=== PATIENT | male | born 1975 | race Caucasian/White ===

== ENCOUNTER 2018-04-11 13:28 | Inpatient (IN) | payer OTHER ==
[~2018-04-11] VITALS: Ht 175.3 cm; Wt 90.3 kg
[2018-04-11] MEDS ORDERED: TYLENOL PO (13:35)
[2018-04-11] MEDS ORDERED: CIPROFLOXACIN IV 400 MG in PREMIXED 1 EACH IV SCH (13:58)
[2018-04-11] MEDS ORDERED: METRONIDAZOLE 500 MG/NS 100ML 500 MG in PREMIXED 1 EACH IV SCH (14:00)
[2018-04-11] MEDS ORDERED: IV NS 1000 ML 1,000 ML IV ONE ×2 (14:00→15:45)
[2018-04-11] MEDS ORDERED: ONDANSETRON 4 MG/2 ML VIAL ONE (14:10)
[2018-04-11] MEDS ORDERED: PANTOPRAZOLE SODIUM 40 MG VIAL ONE (14:10)
[2018-04-11] MEDS ORDERED: MORPHINE SULFATE 4 MG/1 ML DISP.SYRIN ONE (14:10)
[2018-04-11] MEDS ORDERED: METRONIDAZOLE 500 MG/NS 100ML 100 ML IV ONE (14:11)
[2018-04-11] MEDS ORDERED: MORPHINE SULFATE 4 MG/1 ML DISP.SYRIN IV ONE (14:15)
[2018-04-11] MEDS ORDERED: PANTOPRAZOLE SODIUM IV 40 MG in IV DEXTROSE 5% 100 ML IV ONE (14:15)
[2018-04-11] MEDS ORDERED: ONDANSETRON IV *ER 4 MG/2 ML VIAL IV ONE (14:15)
[2018-04-11 14:18] LABS: BASOPHILS % (AUTO) 0.3 % (0.0-2.0); EOSINOPHILS % (AUTO) 0.2 % (0.0-7.0); HEMATOCRIT 43.3 % (36.7-47.1); HEMOGLOBIN 15.1 g/dL (12.5-16.3); LYMPHOCYTES % (AUTO) 8.8 % (20.5-51.5); MEAN CORPUSCULAR HEMOGLOBIN 30.3 uug (23.8-33.4); MEAN CORPUSCULAR HGB CONC 35 g/dL (32.5-36.3); MONOCYTES % (AUTO) 4.7 % (0.0-11.0); NEUTROPHILS # (AUTO) 12.3 K/uL (1.8-8.9); PLATELET COUNT (AUTO) 186 K/uL (152-348); RED BLOOD CELL COUNT(AUTO) 4.98 MIL/uL (4.06-5.63); WHITE BLOOD COUNT (AUTO) 14.3 K/uL (3.6-10.2)
[2018-04-11 14:19] LABS: LYMPHOCYTES # (AUTO) 1.3 K/uL (20.0-40.0); MONOCYTES # (AUTO) 0.7 K/uL (2.0-10.0)
[2018-04-11] MEDS ORDERED: IV NORMAL SALINE 100 ML ONE (14:23)
[2018-04-11] MEDS ORDERED: SWABABLE VALVE TRANSFER SET EA MC ONE (14:23)
[2018-04-11] MEDS ORDERED: IOHEXOL 300MG/ML 100 ML INFUS..BTL ONE (14:23)
[2018-04-11 14:35] LABS: BILIRUBIN,TOTAL 1.4 mg/dL (0.2-1.0)
[2018-04-11] MEDS ORDERED: methylPREDNISolone SOD SUCC 40 MG/ML VIAL IV ONE (14:45)
[2018-04-11] MEDS ORDERED: diphenhydrAMINE 50 MG/1 ML VIAL IV ONE (14:45)
[2018-04-11] MEDS ORDERED: diphenhydrAMINE 50 MG/1 ML VIAL ONE (14:50)
[2018-04-11] MEDS ORDERED: methylPREDNISolone SOD SUCC 40 MG/ML VIAL ONE (14:50)
[2018-04-11 16:02] LABS: *BILIRUBIN,URIN NEGATIVE (NEGATIVE); *BLOOD, URINE NEGATIVE (NEGATIVE); *CLARITY,URINE CLEAR (CLEAR); *COLOR,URINE LIGHT YELLOW (YELLOW); *KETONES,URINE NEGATIVE (NEGATIVE); *PROTEIN,URINE NEGATIVE (NEGATIVE); *UROBILINOGEN,URINE 0.2 E.U./dl (NORMAL); LEUKOCYTE ESTERASE ,URINE NEGATIVE (NEGATIVE); NITRITE, URINE NEGATIVE (NEGATIVE); PH,URINE 6.5 (5.0-8.0); UGLUCOSE NEGATIVE (NEGATIVE)
[2018-04-11 16:09] LABS: WBC,URINE NONE SEEN /HPF (0-3)
[2018-04-11] MEDS ORDERED: Z GUARD REMEDY PASTE 57 GM TUBE TOP PRN (16:30)
[2018-04-11] MEDS ORDERED: MAGNESIUM HYDROXIDE 30 ML LIQUID UDC PO PRN (16:30)
[2018-04-11] MEDS ORDERED: ACETAMINOPHEN 325 MG TABLET PO PRN (16:30)
[2018-04-11] MEDS ORDERED: IV NS 1000 ML 1,000 ML IV PRN (16:30)
[2018-04-11] MEDS ORDERED: HYDROCODONE/APAP 5-325MG TABLET PO PRN (16:30)
[2018-04-11] MEDS ORDERED: ONDANSETRON 4 MG/2 ML VIAL IV PRN (16:30)
[2018-04-11] MEDS ORDERED: MORPHINE SULFATE 2 MG/1 ML DISP.SYRIN IV PRN (16:30)
[2018-04-11] MEDS ORDERED: MORPHINE SULFATE 4 MG/1 ML DISP.SYRIN IV PRN (17:15)
[2018-04-11 17:23] LABS: *AMPHETAMINE, URINE NEGATIVE (NEGATIVE); *BARBITURATE, URINE NEGATIVE (NEGATIVE); *CANNABINOID, URINE NEGATIVE (NEGATIVE); *COCCAINE, URINE NEGATIVE (NEGATIVE); *OPIATE, URINE POSITIVE (NEGATIVE); *PHENCYCLIDINE SCREEN,URINE NEGATIVE (NEGATIVE)
[2018-04-11 17:56] VITALS: BP 107/58
[2018-04-11] MEDS: PIPERACILLIN/TAZOBACTAM/D5W 50 ML IV SCH (19:55)
[2018-04-11 20:00] VITALS: BP 104/57
[2018-04-12] MEDS: PIPERACILLIN/TAZOBACTAM/D5W 50 ML IV SCH ×3 (00:03→11:14)
[2018-04-12] MEDS ORDERED: ZOLPIDEM 5 MG TABLET PO PRN (00:45)
[2018-04-12 04:31] VITALS: BP 115/57
[2018-04-12 06:57] LABS: BILIRUBIN,DIRECT 0.2 mg/dL (0.0-0.2); BILIRUBIN,TOTAL 1.4 mg/dL (0.2-1.0); MAGNESIUM 1.9 mg/dL (1.8-2.4); PHOSPHOROUS 4.7 mg/dL (2.5-4.9); POTASSIUM 3.5 mmol/L (3.5-5.1)
[2018-04-12 06:58] LABS: BASOPHILS % (AUTO) 0.1 % (0.0-2.0); HEMATOCRIT 42.8 % (36.7-47.1); HEMOGLOBIN 15.1 g/dL (12.5-16.3); LYMPHOCYTES # (AUTO) 0.9 K/uL (20.0-40.0); LYMPHOCYTES % (AUTO) 8.4 % (20.5-51.5); MEAN CORPUSCULAR HEMOGLOBIN 30.5 uug (23.8-33.4); MEAN CORPUSCULAR HGB CONC 35 g/dL (32.5-36.3); MEAN CORPUSCULAR VOLUME 86.7 fL (73.0-96.2); MONOCYTES # (AUTO) 0.5 K/uL (2.0-10.0); MONOCYTES % (AUTO) 5.1 % (0.0-11.0); NEUTROPHILS # (AUTO) 9.2 K/uL (1.8-8.9); NEUTROPHILS % (AUTO) 86.4 % (38.5-71.5); PLATELET COUNT (AUTO) 211 K/uL (152-348); RED BLOOD CELL COUNT(AUTO) 4.93 MIL/uL (4.06-5.63); WHITE BLOOD COUNT (AUTO) 10.6 K/uL (3.6-10.2)
[2018-04-12 07:05] LABS: THYROID STIMULATING HORMONE 0.421 mIU/mL (0.358-3.740)
[2018-04-12] MEDS ORDERED: PANTOPRAZOLE SODIUM 40 MG VIAL IV SCH ×2 (09:00→11:39)
[2018-04-12 11:56] VITALS: BP 112/64
[2018-04-12 15:35] VITALS: BP 126/89
== END 2018-04-12 15:35 | disposition home or self-care (01) | DRG 871 ==
LOC: ER 13:28 → MED 17:02
PROVIDERS: ADMIT Nurse Practitioner Acute Care; ATTEND Nurse Practitioner Acute Care
DX: A41.9 Sepsis, unspecified organism (principal); K65.9 Peritonitis, unspecified; B37.0 Candidal stomatitis; J98.11 Atelectasis; M04.1 Periodic fever syndromes; K42.9 Umbilical hernia without obstruction or gangrene; E80.6 Other disorders of bilirubin metabolism; Z72.0 Tobacco use; Z90.49 Acquired absence of other specified parts of digestive tract; K80.20 Calculus of gallbladder without cholecystitis without obstruction; K76.0 Fatty (change of) liver, not elsewhere classified; K57.30 Diverticulosis of large intestine without perforation or abscess without bleeding
CPT/HCPCS: 36415; 70030-TC; 71045; 76700; 80307; 83605; 83690; 83735; 84100; 84443; 85025; 85610; 85651; 87040; 93005; A4663; C9113; J0744; J1200; J2270; J2405; J2543; J2920; J3490; J7030; Q9967

== ENCOUNTER 2019-02-09 10:15 | Emergency (ER) | payer OTHER ==
[~2019-02-09] VITALS: Ht 175.3 cm; Wt 90.7 kg
[~2019-02-09 10:15] MED LIST: TYLENOL PO
[2019-02-09] MEDS ORDERED: KETOROLAC TROMETHAMINE 30 MG INJ IVP ONE (10:30)
--- NOTE | 2019-02-09 10:40 | NUR ---
Received patient to ER 2 bed 1 with complaint of right lower abd pain. Seen by ER MD, and orders written. Zach Valladares RN
[2019-02-09 10:47] LABS: BASOPHILS # (AUTO) 0.1 K/uL (0.0-8.0); BASOPHILS % (AUTO) 0.7 % (0.0-2.0); EOSINOPHILS # (AUTO) 0.1 K/uL (0.0-0.7); EOSINOPHILS % (AUTO) 0.9 % (0.0-7.0); HEMATOCRIT 43.9 % (36.7-47.1); HEMOGLOBIN 15.2 g/dL (12.5-16.3); LYMPHOCYTES # (AUTO) 2.2 K/uL (20.0-40.0); LYMPHOCYTES % (AUTO) 18.4 % (20.5-51.5); MEAN CORPUSCULAR HEMOGLOBIN 30.3 uug (23.8-33.4); MEAN CORPUSCULAR HGB CONC 35 g/dL (32.5-36.3); MEAN CORPUSCULAR VOLUME 87.6 fL (73.0-96.2); MONOCYTES # (AUTO) 1.1 K/uL (2.0-10.0); MONOCYTES % (AUTO) 9.3 % (0.0-11.0); NEUTROPHILS # (AUTO) 8.6 K/uL (1.8-8.9); NEUTROPHILS % (AUTO) 70.7 % (38.5-71.5); PLATELET COUNT (AUTO) 219 K/uL (152-348); RED BLOOD CELL COUNT(AUTO) 5.01 MIL/uL (4.06-5.63); WHITE BLOOD COUNT (AUTO) 12.1 K/uL (3.6-10.2)
[2019-02-09] MEDS ORDERED: KETOROLAC TROMETHAMINE 30 MG INJ ONE (10:51)
[2019-02-09 10:55] LABS: POTASSIUM 3.8 mmol/L (3.5-5.1)
--- NOTE | 2019-02-09 10:57 | NUR ---
Patient went to CT abd via gurney with resident in diagnostic radiology. Zach Valladares RN
[2019-02-09 11:01] LABS: BILIRUBIN,DIRECT 0.3 mg/dL (0.0-0.2); BILIRUBIN,TOTAL 1.6 mg/dL (0.2-1.0)
[2019-02-09 11:01] LABS: *BILIRUBIN,URIN NEGATIVE (NEGATIVE); *BLOOD, URINE NEGATIVE (NEGATIVE); *CLARITY,URINE CLEAR (CLEAR); *COLOR,URINE YELLOW (YELLOW); *KETONES,URINE NEGATIVE (NEGATIVE); *UROBILINOGEN,URINE 0.2 E.U./dl (NORMAL); LEUKOCYTE ESTERASE ,URINE NEGATIVE (NEGATIVE); NITRITE, URINE NEGATIVE (NEGATIVE); PH,URINE 7.5 (5.0-8.0); UGLUCOSE NEGATIVE (NEGATIVE)
[2019-02-09 11:03] LABS: WBC,URINE 0-3 /HPF (0-3)
--- NOTE | 2019-02-09 11:10 | NUR ---
Back from CT abd, and resting quietly.
--- NOTE | 2019-02-09 12:09 | NUR ---
Instructions on discharge for patient regarding resuming home meds, smoke cessation, and follow up with PMD. Zach Valladares RN
== END 2019-02-09 12:14 | disposition home or self-care (01) ==
LOC: ER 10:15
DX: R10.84 Generalized abdominal pain (principal); F17.290 Nicotine dependence, other tobacco product, uncomplicated; Z90.49 Acquired absence of other specified parts of digestive tract; Z91.041 Radiographic dye allergy status; Z79.899 Other long term (current) drug therapy
CPT/HCPCS: 36415; 74176; 80048; 80076; 81001; 83690; 85025; 96374; 99284; 99406; J1885; A4663